=== PATIENT | female | born 1995 | race Caucasian/White ===

== ENCOUNTER → 2020-06-25 | Outpatient (CLI) | payer OTHER ==
[~2020-06-25] VITALS: Ht 170.2 cm; Wt 68.5 kg
[~2020-06-25] MED LIST: LURA20TA PO; PANT40TA77 PO; REGADENOSON 0.4 MG/5 ML DISP.SYRIN. IV ONE; SINCALIDE 1.37 MCG in IV NORMAL SALINE 50ML 30 ML IV ONE
--- NOTE | 2020-06-25 09:09 | RAD ---
US ABDOMEN LTD: 06/25/2020 6:54 AM Indication: 25 years old Female. Right upper quadrant pain, nausea Comparison: None. TECHNIQUE: Sonographic evaluation of the right upper quadrant was performed utilizing grayscale and c olor Doppler imaging. FINDINGS: Liver: Homogenous normal echotexture.. There is hepatopedal flow within the portal venous system. Rig ht hepatic lobe measures 16.1 cm. Biliary system: CBD measures 1.8 mm. There is no intrahepatic or extrahepatic biliary dilatation. Gallbladder: There is a nonshadowing echogenic focus measuring 3 x 3 mm suggestive of a gallbladder p olyp. Sludge is identified. No gallbladder wall thickening or pericholecystic fluid . Sonographic Mur phy sign: Negative Pancreas: Visualized head and uncinate process are unremarkable. Body and tail are not visualized. Right kidney: 8.9 x 5.0 x 4.6 cm. No hydronephrosis. Normal echotexture without focal mass or renal c alculus. Free fluid:None. IMPRESSION: 1. Gallbladder polyp measures 3 mm. No sonographic evidence for acute cholecystitis. Sludge is identi fied within the gallbladder. 6-12 month follow-up right upper quadrant ultrasound could be of benefit . Electronically signed by: Daniela Kang MD (06/25/2020 9:07 AM) [id number]
--- NOTE | 2020-06-25 14:46 | RAD ---
HEPATOBILIARY SCAN WITH EJECTION FRACTION History: Reason: abdomen pain, nausea and vomiting / Spl. Instructions: / History: COMPARISON: Limited abdominal ultrasound, same day. Procedure: Serial static images are obtained of the liver and biliary system in the frontal projectio n following IV administration of 5.5 mCi of Technetium 99m Choletec. After filling of the gallbladd er, 1.4 mcg of sincalide were infused over 30 minutes and dynamic imaging continued over this period. The gallbladder ejection fraction was calculated. Findings: There is prompt hepatic clearance of tracer from the blood pool. There is homogeneous distribution th roughout the liver. There is normal filling of the gallbladder and normal emptying into the biliary s ystem and small bowel. The gallbladder ejection fraction measures 73% (normal gallbladder EF is 35% o r greater). IMPRESSION: 1. The cystic duct and common bile duct are patent. Negative for acute cholecystitis. 2. The gallbladder ejection fraction is normal. Electronically signed by: Mario Alberto Clemons MD (06/25/2020 2:44 PM) [id number]
== END ==
LOC: US 06:46
PROVIDERS: ATTEND Internal Medicine Gastroenterology
DX: D41.4 Neoplasm of uncertain behavior of bladder (principal); R11.2 Nausea with vomiting, unspecified
CPT/HCPCS: 76705; 78227; A9537; J2805

== ENCOUNTER 2020-07-23 07:10 | Day surgery (SDC) | payer OTHER ==
[~2020-07-23] VITALS: Ht 170.2 cm; Wt 67.5 kg
[~2020-07-23 07:10] MED LIST changes: +ACETAMINOPHEN 500 MG TABLET PO PRN; +HYDROmorphone 2 MG/ML VIAL IVP PRN; +IV RINGERS,LACTATED 1000ML 1,000 ML IV SCH; +MORPHINE SULFATE 2 MG/ML VIAL. IVP PRN; +PROCHLORPERAZINE 10 MG/2 ML VIAL. IVP PRN; -REGADENOSON 0.4 MG/5 ML DISP.SYRIN. IV ONE; -SINCALIDE 1.37 MCG in IV NORMAL SALINE 50ML 30 ML IV ONE; +fentaNYL PF VIAL 100 MCG/2 ML VIAL IVP PRN
[2020-07-23] MEDS ORDERED: fentaNYL PF VIAL 100 MCG/2 ML VIAL ONE ×2 (07:42→09:11)
[2020-07-23] MEDS ORDERED: SEVOFLURANE 61 TO 120 MINUTES. IH ONE (07:42)
[2020-07-23] MEDS ORDERED: NEOSTIGMINE METHYLSULFATE 5 MG/5 ML SYRINGE. ONE (07:42)
[2020-07-23] MEDS ORDERED: GLYCOPYRROLATE 1 MG/5 ML VIAL. ONE (07:42)
[2020-07-23] MEDS ORDERED: MIDAZOLAM HCL/PF 2 MG/2 ML VIAL. ONE (07:42)
[2020-07-23] MEDS ORDERED: ROCURONIUM 50 MG/5 ML VIAL. ONE (07:43)
[2020-07-23] MEDS ORDERED: LIDOCAINE 2% PF 5 ML VIAL. ONE (07:43)
[2020-07-23] MEDS ORDERED: DEXAMETHASONE SOD PHOS 4 MG/ML VIAL ONE (07:43)
[2020-07-23] MEDS ORDERED: ONDANSETRON PF 4 MG/2 ML VIAL. ONE (07:43)
[2020-07-23] MEDS ORDERED: PROPOFOL 10 MG/ML (20ML) VIAL. IV ONE (07:43)
[2020-07-23] MEDS ORDERED: IOHEXOL 300 MG/ML 50 ML VIAL. ONE (08:04)
[2020-07-23] MEDS ORDERED: BUPIVACAINE-EPI 0.25% 30 ML VIAL KIT. ONE (08:04)
[2020-07-23] MEDS ORDERED: SURGICEL HEMOSTAT 4X8 EACH. ONE (08:04)
[2020-07-23] MEDS ORDERED: PHENYLEPHRINE in 0.9% NACL PF 1 MG/10 ML SYRINGE. IV ONE (08:46)
--- NOTE | 2020-07-23 08:56 | PDOC4 ---
Operative Note Operative Note Date: July 232020 at 854 Preoperative diagnosis: Biliary dyskinesia Postoperative diagnosis: Same Procedure: Laparoscopic cholecystectomy Surgeon: Adonis Specimen: Gallbladder Dictation: Patient is 25-year-old female with right upper quadrant abdominal pain. Ultrasound was negative HIDA scan did reproduce pain. Procedure of laparoscopic cholecystectomy was explained to the patient detail risk benefits were also discussed including bleeding infection injury to intra-abdominal contents possible necessitating further open operations alternatives to this procedure also discussed with the patient who seemed to understand and gave both verbal and written consent to have the procedure performed. Patient was taken to the operating room placed in the supine position general anesthesia was initiated once patient was sleeping intubated her abdomen was prepped and draped in usual sterile fashion using ChloraPrep. Area just below the umbilicus was i njected with quarter percent Marcaine with epinephrine incision was made 11 blade scalpel and a varies needle was placed within the abdomen creating pneumoperitoneum once this was complete a 11 mm port was placed and a 5 mm camera is placed within the abdomen which was inspected no other ab maladies were noted. A 5 mm port was placed in the epigastrium a 5 mm port was placed in the right midabdomen and a 5 mm port was placed in the right lateral abdomen. The dome of the gallbladder is grasped retracted cephalad the infundibulum of the gallbladder is grasped retracted laterally exposing the triangle adherent tissues of the triangle were taken down exposing the cystic duct and cystic artery both were doubly clipped and transected the gallbladder was taken off the liver with hook electrocautery placed in Endo Catch bag removed and the umbilicus the right upper quadrant is irrigated and suctioned dry hemostasis deemed to be appropriate the pneumoperitoneum was reduced all ports were removed the fascial defect at the umbilicus was closed with a [id number] 0 Vicryl suture and the skin was reapproximated all port sites for subcuticular Monocryl Mastisol Steri-Strips and island dressings were applied. Patient was awakened and extubated in the operating room taken to recovery in stable condition all sponge instrument needle counts listed as correct estimated blood loss 10 mL ELVI TRAVIS MD Jul 23, 2020 08:56
--- NOTE | 2020-07-23 08:58 | DISCH ---
DISCHARGE INSTRUCTIONS Condition on Discharge Condition on Discharge: Stable Activity After Discharge Activity Instructions for Disc: Avoid exertion Other activity instructions: No lifting more than 20 pounds for 2 weeks Diet after Discharge Diet after Discharge: Low Fat Wound Incision Care Other wound/incision instructi: Yamilka shower in 24-hour Contacting the after DC Call your doctor for: If your condition worsens Follow-Up Follow up with: Dr. Travis in 2 weeks ELVI TRAVIS MD Jul 23, 2020 08:58
[2020-07-23] MEDS ORDERED: PROCHLORPERAZINE 10 MG/2 ML VIAL. ONE (09:12)
[2020-07-23] MEDS: fentaNYL PF VIAL 100 MCG/2 ML VIAL IVP PRN ×2 (09:14→09:29)
[2020-07-23] MEDS ORDERED: oxyCODONE/APAP 5/325 1 TAB TABLET PO ONE ×2 (09:15)
[2020-07-23] MEDS ORDERED: OXYC-325 PO (09:31)
[2020-07-23 10:05] VITALS: BP 98/60
--- NOTE | 2020-07-27 16:06 | PATHOLOGY ---
[facility] Accession Number: [id number] . 01 Material submitted: . gallbladder - GALLBLADDER AND CONTENTS . 01 Clinical history: . BILIARY DYSKINESIA . 02 Diagnosis: Gallbladder, laparoscopic cholecystectomy: - Cholesterolosis, focal. - Chronic cholecystitis. ([facility] 07/27/2020) [facility] 07/27/2020 0940 Local . 02 Comment: There are no calculi identified within the gallbladder lumen or specimen container. There is no evidence of malignancy. ([facility] 07/27/2020) . 02 Electronically signed: . Nate Jolly MD, Pathologist NPI- [id number] . 01 Gross description: . Received in formalin labeled "Wilfrido, Isela, gallbladder and contents" is an intact cholecystectomy specimen measuring 5.8 x 3.5 x 3.2 cm. The serosa is cheatham-green and smooth and the specimen is opened to reveal dark green velvety mucosa without polyps or masses. The average wall thickness is 0.1 cm. Calculi are not present. Conservation Enforcement Officer sections of the fundus and body and the cystic duct margin are submitted in A1. ([facility]; 07/24/2020) [facility] 07/24/2020 0903 Local . 02 Pathologist provided ICD-10: K81.1, K82.4 . 02 CPT . 038898 Specimen Comment: A courtesy copy of this report has been sent to [phone] Specimen Comment: Report sent to Performed at: 01 [facility] [address], [place], [place] [id number] MD Lenny Renee MD Phone: [phone] Performed at: 02 [facility] [address], [place] [id number] MD Nate Jolly MD Phone: [phone]
== END 2020-07-23 10:25 | disposition home or self-care (01) ==
LOC: SURG 07:10
PROVIDERS: ATTEND Surgery
DX: K82.8 Other specified diseases of gallbladder (principal); K21.9 Gastro-esophageal reflux disease without esophagitis; F41.9 Anxiety disorder, unspecified; F32.9 Major depressive disorder, single episode, unspecified; Z87.891 Personal history of nicotine dependence; Z79.899 Other long term (current) drug therapy; Z98.890 Other specified postprocedural states; Z88.1 Allergy status to other antibiotic agents; Z88.8 Allergy status to other drugs, medicaments and biological substances
CPT/HCPCS: 47562; 81025; J0780; J1100; J2250; J2370; J2405; J2704; J2710; J3010; J3490; J7120; Q9967

== ENCOUNTER → 2020-12-22 | Day surgery (SDC) | payer OTHER ==
[~2020-12-22] VITALS: Ht 170.2 cm; Wt 64.5 kg
[~2020-12-22] MED LIST changes: -ACETAMINOPHEN 500 MG TABLET PO PRN; -HYDROmorphone 2 MG/ML VIAL IVP PRN; +LIDOCAINE 2% PF 5 ML VIAL. ONE; -MORPHINE SULFATE 2 MG/ML VIAL. IVP PRN; +OXYC-325 PO; -PROCHLORPERAZINE 10 MG/2 ML VIAL. IVP PRN; +PROPOFOL 10 MG/ML (20ML) VIAL. IV ONE; -fentaNYL PF VIAL 100 MCG/2 ML VIAL IVP PRN
[2020-12-22 06:39] VITALS: BP 111/65
[2020-12-22 07:48] VITALS: BP 116/79
== END | disposition home or self-care (01) ==
LOC: ENDOS 06:18
PROVIDERS: ATTEND Internal Medicine Gastroenterology
DX: K52.9 Noninfective gastroenteritis and colitis, unspecified (principal); K64.0 First degree hemorrhoids; R10.11 Right upper quadrant pain; K63.89 Other specified diseases of intestine; K31.89 Other diseases of stomach and duodenum; K21.9 Gastro-esophageal reflux disease without esophagitis; F41.9 Anxiety disorder, unspecified; F32.9 Major depressive disorder, single episode, unspecified; Z90.49 Acquired absence of other specified parts of digestive tract; Z98.890 Other specified postprocedural states; Z79.899 Other long term (current) drug therapy; Z87.891 Personal history of nicotine dependence; Z88.1 Allergy status to other antibiotic agents; Z88.8 Allergy status to other drugs, medicaments and biological substances; Z72.89 Other problems related to lifestyle; Z20.822 Contact with and (suspected) exposure to COVID-19
CPT/HCPCS: 43239; 45380; 81025; 87426; J2704